=== PATIENT | female | born 1955 | race Caucasian/White ===

== ENCOUNTER → 2018-12-21 | Day surgery (SDC) | payer BC ==
[~2018-12-21] MED LIST: Lactated Ringers 1,000 ML IV SCH; Propofol 200 MG/20 ML SDV IV ONE
[2018-12-21 12:16] VITALS: BP 135/65; PULSE 100
--- NOTE | 2018-12-21 15:29 | OR ---
DATE OF OPERATION: 12/21/2018 PREOPERATIVE DIAGNOSIS: HISTORY OF POLYPS. POSTOPERATIVE DIAGNOSIS: HISTORY OF POLYPS. SURGEON: Papa Hardin MD PROCEDURE: SURVEILLANCE COLONOSCOPY WITH POLYP REMOVAL X4, 3 VIA FORCEPS, 1 VIA SNARE. ANESTHESIA: MAC. COMPLICATIONS: None. SPECIMEN: 1. Villous adenoma in sigmoid colon. 2. Three hyperplastic polyps in rectal vault. FINDINGS: 1. Full-length colonoscopy. 2. Gxaj-af-btseeths sigmoid diverticulosis. 3. Villous adenoma greater than 0.5 cm in sigmoid colon. 4. Multiple hyperplastic polyps in rectal vault. RECOMMENDATIONS: Followup colonoscopy in 5 years. INDICATIONS: Mrs. Hinojosa has a history of polyps in the past. She is due for a surveillance scope after 5 years. DESCRIPTION OF PROCEDURE: The patient was prepped and draped, placed in the left lateral decubitus position. A lubricated Olympus colonoscope was inserted and with ease advanced to the cecum. Direct visualization of the ileocecal valve and appendiceal orifice was accomplished. The bowel prep was adequate. Upon withdrawal of the scope, the right transverse and descending colons were unremarkable. The patient had [id number] diverticular disease in the sigmoid colon without any inflammatory changes. Around 40 cm in the mid-to- distal sigmoid, the patient had a large villous lesion easily removed with a snare and suctioned into polyp trap #1 without complication. In the distal rectosigmoid junction in the proximal rectal vault, the patient had a plethora of small hyperplastic polyps, some of these were miniscule. We removed 3 of the small, but the largest of the ones present, without any complication using a forceps. Retroflexion of the scope in the rectum showed no anal lesions. Air was suctioned, scope removed without complication. IGNACIO/REJI /[id number]
== END ==
LOC: CC.SDS 09:11
PROVIDERS: ATTEND Family Medicine
DX: Z12.11 Encounter for screening for malignant neoplasm of colon (principal); K63.5 Polyp of colon; K62.1 Rectal polyp; K57.30 Diverticulosis of large intestine without perforation or abscess without bleeding; I10 Essential (primary) hypertension; J43.9 Emphysema, unspecified; M80.88XA Other osteoporosis with current pathological fracture, vertebra(e), initial encounter for fracture; Z99.81 Dependence on supplemental oxygen; Z86.010 Personal history of colon polyps; Z87.891 Personal history of nicotine dependence; Z79.82 Long term (current) use of aspirin; Z79.899 Other long term (current) drug therapy
CPT/HCPCS: 45385; J2704; J7120